=== PATIENT | female | born 1955 | race Caucasian/White ===

== ENCOUNTER 2021-03-15 06:03 | Emergency (ER) | payer OTHER ==
[2021-03-15] MEDS ORDERED: IPRATROPIUM-ALBUTEROL 3 ML NEB INHALATION STA (06:20)
[2021-03-15] MEDS ORDERED: DEXAMETHASONE SOD PHOSPHATE 10 MG/ML 1 ML VIAL IM STA (06:20)
[2021-03-15] MEDS ORDERED: guaiFENesin-DM 100-10MG/5ML 10 ML CUP PO STA (06:31)
[2021-03-15 08:03] VITALS: BP 150/63; PULSE 96; RESP 20; TEMP 97.9
--- NOTE | 2021-03-15 08:18 | ED ---
General Adult HPI - General Chief complaint: Shortness of Breath Stated complaint: SOB Time Seen by Provider: 03/15/21 06:14 Source: patient, RN notes reviewed Mode of arrival: wheelchair Limitations: no limitations - History of Present Illness Initial comments: Patient is a 65-year-old female that presents to emergency complaining of wheezing and shortness of breath. Patient notes that she got her Covid and flu vaccine yesterday and is having some postinjection reactions. She notes that she does have an at home inhaler that she is use with no relief. Patient was otherwise well-appearing. She denied any other issues or complaints. She denied any fevers nausea vomiting diarrhea constipation fever fatigue chills. - Related Data Previous Rx's Medication Instructions Recorded Albuterol Sulfate [Albuterol 2 puff PO Q6H #8.5 gm 03/15/21 Sulfate Hfa] predniSONE 50 mg PO DAILY #5 tab 03/15/21 Allergies Allergy/AdvReac Type Severity Reaction Status Date / Time codeine Allergy Nausea & Verified 03/15/21 06:11 Vomiting & Diarrhea meperidine [From Demerol] Allergy Rash/Hives Verified 03/15/21 06:11 Penicillins Allergy Rash/Hives Verified 03/15/21 06:11 Review of Systems ROS Statement: Those systems with pertinent positive or pertinent negative responses have been documented in the HPI. ROS Other: All systems not noted in ROS Statement are negative. Past Medical History Past Medical History: Asthma History of Any Multi-Drug Resistant Organisms: None Reported Past Surgical History: Section, Cholecystectomy Past Psychological History: No Psychological Hx Reported Smoking Status: Current every day smoker Past Alcohol Use History: Rare Past Drug Use History: None Reported General Exam Limitations: no limitations General appearance: alert, in no apparent distress Head exam: Present: atraumatic, normocephalic, normal inspection Eye exam: Present: normal appearance, PERRL, EOMI. Absent: scleral icterus, conjunctival injection, periorbital swelling ENT exam: Present: normal exam, mucous membranes moist Neck exam: Present: normal inspection Respiratory exam: Present: wheezes (Bilaterally). Absent: respiratory distress, rales, rhonchi, stridor Cardiovascular Exam: Present: regular rate, normal rhythm, normal heart sounds. Absent: systolic murmur, diastolic murmur, rubs, gallop, clicks Extremities exam: Present: normal inspection, full ROM, normal capillary refill. Absent: tenderness, pedal edema, joint swelling, calf tenderness Neurological exam: Present: alert, oriented X3 Psychiatric exam: Present: normal affect, normal mood Skin exam: Present: warm, dry, intact, normal color. Absent: rash Course Vital Signs 03/15/21 03/15/21 03/15/21 06:06 06:27 07:21 Temperature 99.0 F Pulse Rate 105 H 100 89 Respiratory 28 H 24 18 Rate Blood Pressure 159/75 O2 Sat by Pulse 94 L 97 Oximetry 03/15/21 08:00 Temperature 97.9 F Pulse Rate 96 Respiratory 20 Rate Blood Pressure 150/63 O2 Sat by Pulse 95 Oximetry Medical Decision Making - Medical Decision Making Patient is a 65-year-old female with a bite postinjection reaction including wheezing shortness of breath. DuoNeb, 10 mg of Decadron ordered. Patient's vital signs are stable saturating at 95% on room air. Patient is agreeable with discharge home with follow-up primary care. Prednisone and albuterol inhalers at home. Case discussed with Dr. Scott, patient discharge home. Disposition Clinical Impression: Shortness of breath Disposition: HOME SELF-CARE Condition: Stable Instructions (If sedation given, give patient instructions): Shortness of Breath (ED) Additional Instructions: Please return to the Emergency Department if symptoms worsen or any other concerns. Follow-up with primary care 1-2 days. Take prednisone and albuterol as prescribed. Is patient prescribed a controlled substance at d/c from ED?: No Referrals: Ramírez Baldwin MD [Primary Care Provider] - 1-2 days Time of Disposition: 08:18
== END 2021-03-15 08:24 | disposition home or self-care (01) ==
LOC: EC 06:03
DX: R06.02 Shortness of breath (principal); R06.2 Wheezing; F17.200 Nicotine dependence, unspecified, uncomplicated; J45.909 Unspecified asthma, uncomplicated; Z88.5 Allergy status to narcotic agent; Z88.0 Allergy status to penicillin
CPT/HCPCS: 94640; 99284; J1100

== ENCOUNTER → 2022-04-26 | Outpatient (CLI) | payer MEDICARE ==
--- NOTE | 2022-04-26 09:25 | XR ---
EXAMINATION TYPE: XR chest 2V DATE OF EXAM: 04/26/2022 COMPARISON: NONE TECHNIQUE: PA and lateral views submitted. HISTORY: Shortness of breath FINDINGS: The lungs are clear and there is no pneumothorax, pleural effusion, or focal pneumonia. Heart size normal. Atherosclerotic change aorta. Arthropathy of the shoulders. No overt failure. Surgical clips in the abdomen. IMPRESSION: 1. No acute process.
== END | disposition home or self-care (01) ==
LOC: RADXRMAIN 08:01
PROVIDERS: ATTEND Internal Medicine
DX: R06.00 Dyspnea, unspecified (principal)
CPT/HCPCS: 71046

== ENCOUNTER → 2022-05-11 | Outpatient (CLI) | payer MEDICARE ==
--- NOTE | 2022-05-14 10:41 | MM ---
Reason for Exam: Screening (asymptomatic). Last mammogram was performed 3 year(s) and 8 month(s) ago. Patient History: Menarche at age 18. First Full-Term at age 21. Postmenopausal. Patient has history of breast feeding. Sister had breast cancer at or over age 50. Risk Values: Asia 5 year model risk: 2.8%. NCI Lifetime model risk: 10.4%. Prior Study Comparison: 07/17/2017 Bilateral MG screening mammo w CAD - 2, [facility]. 08/29/2018 Bilateral MG screening mammo w CAD - 2, [facility]. Tissue Density: The breast tissue is heterogeneously dense. This may lower the sensitivity of mammography. Findings: Analyzed By CAD. Benign-appearing bilateral axillary lymph nodes are redemonstrated. There is no suspicious new group of microcalcifications or new suspicious mass in either breast. Overall Assessment: Negative, BI-RAD 1 Management: Screening Mammogram of both breasts in 1 year. A clinical breast exam by your physician is recommended on an annual basis and results should be correlated with mammographic findings. Electronically signed and approved by: Yogi Ramon M.D.
== END | disposition home or self-care (01) ==
LOC: RADMAMWWP 06:56
PROVIDERS: ATTEND Internal Medicine
DX: Z12.31 Encounter for screening mammogram for malignant neoplasm of breast (principal); Z78.0 Asymptomatic menopausal state; Z80.3 Family history of malignant neoplasm of breast
CPT/HCPCS: 77063; 77067

== ENCOUNTER → 2023-06-17 | Outpatient (CLI) | payer MEDICARE ==
--- NOTE | 2023-06-18 10:39 | MM ---
Reason for Exam: Screening (asymptomatic). Last mammogram was performed 1 year(s) and 2 month(s) ago. Patient History: Menarche at age 18. First Full-Term at age 21. Postmenopausal. Patient has history of breast feeding. Sister had breast cancer at or over age 50. Risk Values: Asia 5 year model risk: 2.8%. NCI Lifetime model risk: 10.0%. Prior Study Comparison: 07/17/2017 Bilateral MG screening mammo w CAD - 2, [facility]. 08/29/2018 Bilateral MG screening mammo w CAD - 2, [facility]. 05/11/2022 Bilateral MG 3D screening mammo w/cad, [facility]. Tissue Density: The breast tissue is heterogeneously dense. This may lower the sensitivity of mammography. Findings: Analyzed By CAD. There is no suspicious group of microcalcifications or new suspicious mass in either breast. Overall Assessment: Benign, BI-RAD 2 Management: Screening Mammogram of both breasts in 1 year. . Patient should continue monthly self-breast exams. A clinical breast exam by your physician is recommended on an annual basis. This exam should not preclude additional follow-up of suspicious palpable abnormalities. Note on Asia scores and lifetime risk: 1. A Asia score greater than 3% is considered moderate risk. If this is the case, consider specialist referral to assess eligibility for a risk reducing agent. 2. If overall lifetime risk for the development of breast cancer is 20% or higher, the patient may qualify for future screening with alternating mammogram and breast MRI. Electronically signed and approved by: Liang Vega M.D. Radiologis
== END | disposition home or self-care (01) ==
LOC: RADMAMWWP 07:57
PROVIDERS: ATTEND Internal Medicine
DX: Z12.31 Encounter for screening mammogram for malignant neoplasm of breast (principal); Z78.0 Asymptomatic menopausal state; Z80.3 Family history of malignant neoplasm of breast
CPT/HCPCS: 77063; 77067

== ENCOUNTER 2024-04-25 13:54 | Emergency (ER) | payer MEDICARE ==
[2024-04-25 14:05] VITALS: TEMP 97.7
--- NOTE | 2024-04-25 14:19 | ED ---
Nausea/Vomiting/Diarrhea HPI - General Chief complaint: Allergic Reaction Stated complaint: Allergic Reaction Time Seen by Provider: 04/25/24 14:05 Source: patient, RN notes reviewed Mode of arrival: ambulatory Limitations: no limitations - History of Present Illness Initial comments: This is a 69-year-old female who presents to the emergency department for nausea, vomiting, diarrhea, and concerns of allergic reaction. States that for 4 days she developed the gastrointestinal symptoms. She went to urgent care yesterday and was given a prescription for Zofran, Flagyl, and Levaquin. States that she then started to break out in a rash and feels itchy all over. Unsure if she has ever been on any of those medications before. Her nausea is improvin g, however she continues to have diarrhea. States that she is going every 30 to 60 minutes. This has occasional form, but is largely liquid. She has mild abdominal cramping as well. MD complaint: nausea, vomiting, diarrhea - Related Data Previous Rx's Medication Instructions Recorded Albuterol Sulfate [Albuterol 2 puff PO Q6H #8.5 gm 03/15/21 Sulfate Hfa] predniSONE 50 mg PO DAILY #5 tab 03/15/21 Dicyclomine [Bentyl] 10 - 20 mg PO QID PRN #30 capsule 04/25/24 Famotidine 40 mg PO DAILY 7 Days #7 tablet 04/25/24 Allergies Allergy/AdvReac Type Severity Reaction Status Date / Time codeine Allergy Nausea & Verified 04/25/24 14:00 Vomiting & Diarrhea meperidine [From Demerol] Allergy Rash/Hives Verified 04/25/24 14:00 Penicillins Allergy Rash/Hives Verified 04/25/24 14:00 Review of Systems ROS Statement: Those systems with pertinent positive or pertinent negative responses have been documented in the HPI. ROS Other: All systems not noted in ROS Statement are negative. Past Medical History Past Medical History: Asthma History of Any Multi-Drug Resistant Organisms: None Reported Past Surgical History: Section, Cholecystectomy Past Psychological History: No Psychological Hx Reported Smoking Status: Current every day smoker Past Alcohol Use History: Rare Past Drug Use History: None Reported General Exam Limitations: no limitations General appearance: alert, in no apparent distress Head exam: Present: atraumatic, normocephalic, normal inspection Respiratory exam: Present: normal lung sounds bilaterally. Absent: respiratory distress, wheezes, rales, rhonchi, stridor Cardiovascular Exam: Present: regular rate, normal rhythm, normal heart sounds. Absent: systolic murmur, diastolic murmur, rubs, gallop, clicks GI/Abdominal exam: Present: soft, normal bowel sounds. Absent: distended, tenderness, guarding, rebound, rigid Neurological exam: Present: alert, oriented X3, CN II-XII intact Psychiatric exam: Present: normal affect, normal mood Skin exam: Present: warm, dry, other (Urticaria to the trunk and bilateral upper and lower extremities) Course Vital Signs 04/25/24 04/25/24 14:01 17:23 Temperature 97.7 F Pulse Rate 94 80 Respiratory 20 18 Rate Blood Pressure 126/73 146/63 O2 Sat by Pulse 99 98 Oximetry Medical Decision Making - Medical Decision Making This is a 69 year old female who presents to the emergency department for nausea, vomiting, diarrhea, and a rash. Was pt. sent in by a medical professional or institution? @ -No Did you speak to anyone other than the patient for history? @ -No Did you review nursing and triage notes? @ -Yes, and I agree, it is accurate with regards to the patient's symptoms. Were old charts reviewed? @ -No Differential Diagnosis? @ -Differential Nausea and Vomiting: Gastroenteritis, cholecystitis, appendicitis, pancreatitis, migraine, benign positional vertigo, food borne illness, pyelonephritis, irritable bowel syndrome, influenza, Covid, GERD, incarcerated hernia, intestinal obstruction, this is not meant to be an all-inclusive list. EKG interpreted by me (3pts min.)? @ -Not obtained X-rays interpreted by me (1pt min.)? @ -Not obtained CT interpreted by me (1pt min.)? @ -Not obtained U/S interpreted by me (1pt. min.)? @ -Not obtained What testing was considered but not performed? (CT, X-rays, U/S, labs)? Why? @ -None What meds were considered but not given? Why? @ -None Did you discuss the management of the patient with other professionals? @ -No Did you reconcile home meds? @ -No Was smoking cessation discussed for >3mins.? @ -No Was critical care preformed (if so, how long)? @ -No Were there social determinants of health that impacted care today? How? (Homelessness, low income, unemployed, alcoholism, drug addiction, transportat ion, low edu. Level, literacy, decrease access to med. care, group home, rehab)? @ -No Was there de-escalation of care discussed even if they declined? (Discuss DNR or withdrawal of care, Hospice)? @ -No What co-morbidities impacted this encounter? (DM, HTN, Smoking, COPD, CAD, Cancer, CVA, Hep., AIDS, mental health diagnosis, sleep apnea, morbid obesity)? @ -None Was patient admitted / discharged? @ -Discharged. Lab work unremarkable. C. difficile test negative. She was treated with a liter bolus of IV fluids, Solu-Medrol, famotidine, Benadryl, Bentyl, and Lomotil. She had significant improvement in both the urticaria as well as the abdominal discomfort and diarrhea. Advised that the specific medication that triggered the reaction is not clear. However, given that symptoms have only been present for 4 days at this point, she likely did not need those antibiotics to begin with. Symptoms likely viral in nature. Advised she discontinue those. She can take the Zofran as needed for any additional nausea, as this is less likely to have been what caused the rash. However, if she continues to have the rash she should discontinue the Zofran as well. Bentyl and famotidine prescribed. Advised continuing with Benadryl every 4-6 hours as needed for the rash as well and to follow-up with her primary care provider in the next couple of days. Patient discharged home in stable condition. Case discussed with ED attending, Dr. Nguyen. Return precautions reviewed in depth, the patient is instructed to return to the emergency department with any new, worsening, or concerning symptoms. Patient v erbalized understanding. Undiagnosed new problem with uncertain prognosis? @ -None Drug Therapy requiring intensive monitoring for toxicity (Heparin, Nitro, Insu cely, Cardizem)? @ -None Were any procedures done? @ -None Diagnosis/symptom? @ -Gastroenteritis, allergic reaction to drug Acute, or Chronic, or Acute on Chronic? @ -Acute Uncomplicated (without systemic symptoms) or Complicated (systemic symptoms)? @ -Uncomplicated Side effects of treatment? @ -None Exacerbation, Progression, or Severe Exacerbation] @ -Not applicable Poses a threat to life or bodily function? @ -No - Lab Data Result diagrams: 04/25/24 15:00 04/25/24 15:00 Lab Results 04/25/24 04/25/24 04/25/24 Range/Units 15:00 15:00 15:00 WBC 10.4 (3.8-10.6) k/uL RBC 4.92 (3.80-5.40) m/uL Hgb 13.9 (11.4-16.0) gm/dL Hct 43.4 (34.0-46.0) % MCV 88.3 (80.0-100.0) fL MCH 28.3 (25.0-35.0) pg MCHC 32.1 (31.0-37.0) g/dL RDW 13.5 (11.5-15.5) % Plt Count 197 (150-450) k/uL MPV 7.1 Neutrophils % 75 % Lymphocytes % 11 % Monocytes % 6 % Eosinophils % 6 % Basophils % 0 % Neutrophils # 7.8 H (1.3-7.7) k/uL Lymphocytes # 1.2 (1.0-4.8) k/uL Monocytes # 0.6 (0-1.0) k/uL Eosinophils # 0.6 (0-0.7) k/uL Basophils # 0.0 (0-0.2) k/uL Sodium 131 L (137-145) mmol/L Potassium 3.8 (3.5-5.1) mmol/L Chloride 99 (98-107) mmol/L Carbon Dioxide 22 (22-30) mmol/L Anion Gap 10 mmol/L BUN 18 H (7-17) mg/dL Creatinine 1.01 (0.52-1.04) mg/dL Est GFR (CKD-EPI)AfAm 67 (>60 ml/min/1.73 sqM) Est GFR (CKD-EPI)NonAf 58 (>60 ml/min/1.73 sqM) Glucose 94 (74-99) mg/dL Plasma Lactic Acid Justus (0.7-2.0) mmol/L Calcium 8.9 (8.4-10.2) mg/dL Phosphorus 3.0 (2.5-4.5) mg/dL Magnesium 1.9 (1.6-2.3) mg/dL Total Bilirubin 0.5 (0.2-1.3) mg/dL AST 49 H (14-36) U/L ALT 68 H (4-34) U/L Alkaline Phosphatase 107 (38-126) U/L Total Protein 7.3 (6.3-8.2) g/dL Albumin 4.3 (3.5-5.0) g/dL Amylase 42 (30-110) U/L Lipase 51 (23-300) U/L C. difficile (EIA) Intrp Negative (Negative) 04/25/24 Range/Units 15:00 WBC (3.8-10.6) k/uL RBC (3.80-5.40) m/uL Hgb (11.4-16.0) gm/dL Hct (34.0-46.0) % MCV (80.0-100.0) fL MCH (25.0-35.0) pg MCHC (31.0-37.0) g/dL RDW (11.5-15.5) % Plt Count (150-450) k/uL MPV Neutrophils % % Lymphocytes % % Monocytes % % Eosinophils % % Basophils % % Neutrophils # (1.3-7.7) k/uL Lymphocytes # (1.0-4.8) k/uL Monocytes # (0-1.0) k/uL Eosinophils # (0-0.7) k/uL Basophils # (0-0.2) k/uL Sodium (137-145) mmol/L Potassium (3.5-5.1) mmol/L Chloride (98-107) mmol/L Carbon Dioxide (22-30) mmol/L Anion Gap mmol/L BUN (7-17) mg/dL Creatinine (0.52-1.04) mg/dL Est GFR (CKD-EPI)AfAm (>60 ml/min/1.73 sqM) Est GFR (CKD-EPI)NonAf (>60 ml/min/1.73 sqM) Glucose (74-99) mg/dL Plasma Lactic Acid Justus 1.1 (0.7-2.0) mmol/L Calcium (8.4-10.2) mg/dL Phosphorus (2.5-4.5) mg/dL Magnesium (1.6-2.3) mg/dL Total Bilirubin (0.2-1.3) mg/dL AST (14-36) U/L ALT (4-34) U/L Alkaline Phosphatase (38-126) U/L Total Protein (6.3-8.2) g/dL Albumin (3.5-5.0) g/dL Amylase (30-110) U/L Lipase (23-300) U/L C. difficile (EIA) Intrp (Negative) Disposition Clinical Impression: Allergic reaction to drug, Gastroenteritis Disposition: HOME SELF-CARE Condition: Good Instructions (If sedation given, give patient instructions): Urticaria (ED), Gastroenteritis (ED) Additional Instructions: Return to the emergency department with any new, worsening, or concerning symptoms. Take the Bentyl up to 4 times daily. You can take 1 to 2 tablets at a time. This will help with abdominal cramping and diarrhea. Take the famotidine daily for the next 7 days. Take Benadryl every 4-6 hours as needed to help with any residual rash or itching. The Lomotil provided will also help with the diarrhea. Take the Zofran previously prescribed up to every 8 hours as needed for nausea and vomiting. Stop taking both the Levaquin and Flagyl. Follow up with your primary care provider in 1-2 days. Prescriptions: Dicyclomine [Bentyl] 10 - 20 mg PO QID PRN #30 capsule PRN Reason: Gi Upset Famotidine 40 mg PO DAILY 7 Days #7 tablet Is patient prescribed a controlled substance at d/c from ED?: No Referrals: Mary Gould MD [Primary Care Provider] - 1-2 days
[2024-04-25] MEDS: FAMOTIDINE 20 MG/2 ML VIAL IV STA (15:02)
[2024-04-25] MEDS: SODIUM CHLORIDE 0.9% 1,000 ML IV STA (15:02)
[2024-04-25] MEDS: methylPREDNISolone SOD SUCCI 125 MG/2 ML VIAL IV STA (15:03)
[2024-04-25] MEDS: diphenhydrAMINE 50 MG/ML 1 ML VIAL IVP STA (15:05)
[2024-04-25] MEDS: DICYCLOMINE 10 MG/ML 2 ML AMP IM STA (15:06)
[2024-04-25] MEDS: DIPHENOX-ATROP 2.5-0.025 MG 1 EACH TAB PO STA (15:10)
[2024-04-25 15:41] LABS: ALT 68 U/L (4-34); AST 49 U/L (14-36); African American GFR (CKD) 67 (>60 ml/min/1.73 sqM); Albumin 4.3 g/dL (3.5-5.0); Alkaline Phosphatase 107 U/L (38-126); Amylase 42 U/L (30-110); Anion Gap 10 mmol/L; Blood Urea Nitrogen 18 mg/dL (7-17); Calcium 8.9 mg/dL (8.4-10.2); Carbon Dioxide 22 mmol/L (22-30); Chloride 99 mmol/L (98-107); Glucose 94 mg/dL (74-99); Lipase 51 U/L (23-300); Magnesium 1.9 mg/dL (1.6-2.3); Non-African American GFR(CKD) 58 (>60 ml/min/1.73 sqM); Potassium 3.8 mmol/L (3.5-5.1); Sodium 131 mmol/L (137-145); Total Bilirubin 0.5 mg/dL (0.2-1.3); Total Protein 7.3 g/dL (6.3-8.2)
[2024-04-25 15:43] LABS: Basophils % (A) 0 %; Eosinophils # (A) 0.6 k/uL (0-0.7); Eosinophils % (A) 6 %; HCT 43.4 % (34.0-46.0); HGB 13.9 gm/dL (11.4-16.0); Lymphocytes # (A) 1.2 k/uL (1.0-4.8); Lymphocytes % (A) 11 %; MCH 28.3 pg (25.0-35.0); MCHC 32.1 g/dL (31.0-37.0); MCV 88.3 fL (80.0-100.0); Mean Platelet Volume 7.1; Monocytes # (A) 0.6 k/uL (0-1.0); Monocytes % (A) 6 %; Neutrophils # (A) 7.8 k/uL (1.3-7.7); Neutrophils % (A) 75 %; Platelet Count 197 k/uL (150-450); RBC 4.92 m/uL (3.80-5.40); RDW 13.5 % (11.5-15.5); WBC 10.4 k/uL (3.8-10.6)
[2024-04-25 17:26] VITALS: BP 146/63; PULSE 80; RESP 18
[2024-04-25] MEDS: DIPHENOX-ATROP STARTER PACK 8 TAB BTL PO STA (17:28)
== END 2024-04-25 17:32 | disposition home or self-care (01) ==
LOC: EC 13:54
DX: T78.40XA Allergy, unspecified, initial encounter (principal); K52.9 Noninfective gastroenteritis and colitis, unspecified; F17.200 Nicotine dependence, unspecified, uncomplicated; Z88.0 Allergy status to penicillin; Z88.5 Allergy status to narcotic agent; Z88.8 Allergy status to other drugs, medicaments and biological substances
CPT/HCPCS: 36415; 80053; 82150; 83605; 83690; 83735; 84100; 85025; 87324; 99283; 96374; 96375; 96361; 96372; J1200; J0500; J3490; J2919